=== PATIENT | male | born 1955 | race Caucasian/White ===

== ENCOUNTER 2019-05-08 21:33 | Observation (INO) ==
[2019-05-08] MEDS ORDERED: DICYCLOMINE 20 MG/2 ML AMP IM ONE (22:04)
[2019-05-08] MEDS ORDERED: SODIUM CHLORIDE 0.9% 1,000 ML IV STA (22:04)
[2019-05-08] MEDS ORDERED: ONDANSETRON 4 MG/2 ML VIAL IV STA (22:04)
[2019-05-08] MEDS ORDERED: METOCLOPRAMIDE 10 MG/2 ML VIAL IV STA (22:04)
[2019-05-08 22:22] LABS: Basophils % 0.8 % (0.0-0.8); Eosinophils # 0.1 10*3/uL (0.0-0.87); Eosinophils % 2.9 % (0.00-10.9); Hematocrit 37.3 VOL% (42.0-52.0); Hemoglobin 12.2 GM/DL (14.0-18.0); Immature Granulocytes % 1.6 %; Immature Granulocytes Absolute 0.04 #; Lymphocytes # 0.8 10*3/uL (1.4-4.0); Mean Corpuscular HGB Conc 32.7 GM/DL (32-36); Mean Corpuscular Volume 99.2 FL (87-102); Mean Platelet Volume 9.2 FL (9.6-12.0); Monocytes % 20.5 % (1.7-12.7); Neutrophils % 40.2 % (38.7-73.9); Platelet Count 155 T/CUMM (130-400); Red Blood Count 3.76 MC/CUMM (3.8-5.5); White Blood Count 2.4 T/CUMM (4-12)
[2019-05-08 22:30] LABS: PT Patient Result 11.2 SECS (9.6-12.2); Partial Thromboplastin Time 33.4 SECS (20.8-36.0)
[2019-05-08 22:35] LABS: Albumin 2.8 G/DL (3.4-5.0); Bilirubin,Total 0.8 MG/DL (0.2-1.0); Osmolality,Calculated 278.7 MOS/KG (273-304); Total Protein 6.8 G/DL (6.4-8.3)
[2019-05-08 22:36] LABS: Troponin I < 0.015 NG/ML (0.00-0.045)
[2019-05-08 22:55] LABS: Eosinophils 2 % (0-10); Lymphocytes 35 % (20-55); Nucleated Red Blood Cells 1 (0-5); Segmented Neutrophils 39 % (50-85); Total Cells Counted 100
[2019-05-08 22:56] LABS: Atypical Lymphocytes Few; Hypochromasia 1+; Platelet Estimate Normal; Polychromasia Few; Reactive Lymphocytes Few
[2019-05-09 03:26] LABS: Barbiturates Screen,Urine Negative (Negative); Benzodiazepines Screen,Urine Negative (Negative); Cannabinoid Screen,Urine Negative (Negative); Opiate Screen,Urine Negative (Negative); Phencyclidine Screen,Urine Negative (Negative)
[2019-05-09] MEDS ORDERED: ONDANSETRON 4 MG/2 ML VIAL ONE (04:13)
[2019-05-09 05:02] LABS: Apearance,Urine Cloudy (Clear); Urine Color Amber (Yellow)
[2019-05-09 05:03] LABS: Glucose,Urine (UA) Negative (Negative); Ketones,Urine 80 mg/dL (Negative); Nitrite,Urine Negative (Negative); Protein,Urine Negative; Urine Specific Gravity 1.027 (1.001-1.035)
[2019-05-09 05:04] LABS: Bilirubin,Urine Negative (Negative); Blood, Urine Negative (Negative); RBC,Urine 11 /HPF (0-4); WBC,Urine 2 /HPF (0-6)
[2019-05-09 05:05] LABS: Mucus,Urine Many /LPF (Occasional)
[2019-05-09 05:06] LABS: Hyaline Casts,Urine 9 /LPF (0-3)
[2019-05-09] MEDS ORDERED: ONDANSETRON 4 MG/2 ML VIAL IV PRN (07:58)
[2019-05-09] MEDS ORDERED: DOCUSATE SODIUM 100 MG CAPSULE PO PRN (07:58)
[2019-05-09] MEDS ORDERED: POTASSIUM CHLORIDE 20 MEQ TABLET PO PRN (07:58)
[2019-05-09] MEDS ORDERED: ACETAMINOPHEN 325 MG TABLET PO PRN (07:58)
[2019-05-09] MEDS: TAMSULOSIN 0.4 MG CAPSULE PO SCH (10:30)
[2019-05-09] MEDS: FOLIC ACID 1 MG TABLET PO SCH (10:30)
[2019-05-09] MEDS: hydrOXYzine HCL 25 MG TABLET PO PRN ×2 (10:30→20:26)
[2019-05-09] MEDS: ENOXAPARIN 40 MG/0.4 ML SYRINGE SUBCUT SCH (10:30)
[2019-05-09] MEDS: TRIAMCINOLONE 0.1% CREAM 15 GM TUBE TOP SCH ×2 (10:31→20:27)
[2019-05-09] MEDS: SODIUM CHLORIDE 0.9% 1,000 ML IV SCH (10:31)
[2019-05-09] MEDS: FILGRASTIM-SNDZ 480 MCG/0.8 ML SYRINGE SUBCUT SCH (10:31)
[2019-05-09] MEDS ORDERED: POTASSIUM CHLORIDE RIDER 20 MEQ in PREMIX 1 EACH IV PRN (11:46)
[2019-05-09] MEDS: BUPRENORPHINE NALOXONE SL SCH ×3 (13:30→20:26)
[2019-05-09] MEDS: POTASSIUM CHLORIDE RIDER 10 MEQ in PREMIX 1 EACH IV PRN (14:37)
[2019-05-10] MEDS: SODIUM CHLORIDE 0.9% 1,000 ML IV SCH ×4 (00:42→20:50)
[2019-05-10 01:40] LABS: Albumin 2.7 G/DL (3.4-5.0); Bilirubin,Total 0.7 MG/DL (0.2-1.0); Calcium 8.5 MG/DL (8.5-10.1); Osmolality,Calculated 273.8 MOS/KG (273-304); Total Protein 6.3 G/DL (6.4-8.3)
[2019-05-10] MEDS: POTASSIUM CHLORIDE RIDER 10 MEQ in PREMIX 1 EACH IV PRN ×2 (03:20→04:35)
[2019-05-10 06:05] LABS: Basophils % 0.6 % (0.0-0.8); Eosinophils # 0.2 10*3/uL (0.0-0.87); Eosinophils % 3.7 % (0.00-10.9); Hematocrit 32.6 VOL% (42.0-52.0); Hemoglobin 10.4 GM/DL (14.0-18.0); Immature Granulocytes % 0.8 %; Immature Granulocytes Absolute 0.04 #; Lymphocytes # 1.3 10*3/uL (1.4-4.0); Lymphocytes % 27.1 % (21.2-54.2); Mean Corpuscular HGB Conc 31.9 GM/DL (32-36); Mean Corpuscular Volume 101.9 FL (87-102); Mean Platelet Volume 9.5 FL (9.6-12.0); Monocytes % 17.9 % (1.7-12.7); Neutrophils % 49.9 % (38.7-73.9); Platelet Count 138 T/CUMM (130-400); Red Cell Distribution Width 14.5 % (9.3-17.3); White Blood Count 4.9 T/CUMM (4-12)
[2019-05-10 06:14] LABS: Calcium 8.2 MG/DL (8.5-10.1); Osmolality,Calculated 278.3 MOS/KG (273-304)
[2019-05-10 06:43] LABS: Band Neutrophils 5 % (0-10); Eosinophils 5 % (0-10); Lymphocytes 39 % (20-55); Platelet Estimate Decreased; Segmented Neutrophils 34 % (50-85); Total Cells Counted 100
[2019-05-10 06:44] LABS: Anisocytosis 1+; Macrocytosis 1+; Polychromasia 1+
[2019-05-10] MEDS ORDERED: DILTIAZEM 50 MG/10 ML VIAL IV ONE (06:48)
[2019-05-10] MEDS ORDERED: MAGNESIUM SULF RIDER 4 GM in PREMIX 1 EACH IV PRN (07:56)
[2019-05-10] MEDS ORDERED: MAGNESIUM SULF RIDER 2 GM in PREMIX 1 EACH IV PRN (07:56)
[2019-05-10] MEDS: FOLIC ACID 1 MG TABLET PO SCH (08:37)
[2019-05-10] MEDS: FILGRASTIM-SNDZ 480 MCG/0.8 ML SYRINGE SUBCUT SCH (08:37)
[2019-05-10] MEDS: ENOXAPARIN 40 MG/0.4 ML SYRINGE SUBCUT SCH (08:37)
[2019-05-10] MEDS: TAMSULOSIN 0.4 MG CAPSULE PO SCH (08:37)
[2019-05-10] MEDS: BUPRENORPHINE NALOXONE SL SCH ×3 (08:43→20:52)
[2019-05-10] MEDS: TRIAMCINOLONE 0.1% CREAM 15 GM TUBE TOP SCH ×2 (09:00→21:00)
[2019-05-10 12:20] LABS: Calcium 8.1 MG/DL (8.5-10.1); Osmolality,Calculated 274.5 MOS/KG (273-304)
[2019-05-11] MEDS ORDERED: ASPIRIN EC 81 MG TABLET PO SCH (09:00)
[2019-05-11] MEDS: SODIUM CHLORIDE 0.9% 1,000 ML IV SCH ×2 (09:45→09:46)
[2019-05-11] MEDS: DILTIAZEM CD 120 MG CAPSULE PO SCH ×2 (09:46→13:21)
[2019-05-11] MEDS: FOLIC ACID 1 MG TABLET PO SCH (09:46)
[2019-05-11] MEDS: ENOXAPARIN 40 MG/0.4 ML SYRINGE SUBCUT SCH (09:46)
[2019-05-11] MEDS: TAMSULOSIN 0.4 MG CAPSULE PO SCH (09:47)
[2019-05-11] MEDS: TRIAMCINOLONE 0.1% CREAM 15 GM TUBE TOP SCH (09:48)
[2019-05-11] MEDS: BUPRENORPHINE NALOXONE SL SCH ×2 (09:50→15:10)
[2019-05-11] MEDS ORDERED: POTASSIUM CHLORIDE 20 MEQ TABLET PO ONE (10:53)
[2019-05-11 11:59] VITALS: BP 95/62
[2019-05-11] MEDS ORDERED: HEPARIN LOCK FLUSH 500 UNIT/5 ML SYRINGE IV ONE (14:35)
== END 2019-05-11 16:44 | disposition home or self-care (01) ==
LOC: EDUNIT# 21:33 → N.ED 21:33 → N.4E 21:33 → N.EDINP 21:33 → EDBD 21:33 → SUATTDRO 05-09 04:46 → N.4E 05-09 05:04 → N.EDINP 05-09 05:29 → N.4E 05-09 07:16
PROVIDERS: ADMIT Internal Medicine; ATTEND Internal Medicine

== ENCOUNTER 2019-06-29 18:10 | Inpatient (IN) ==
[2019-06-29] MEDS ORDERED: KETOROLAC 30 MG/1 ML VIAL IV STA (19:25)
[2019-06-29] MEDS ORDERED: ASPIRIN 325 MG TABLET PO STA (19:25)
[2019-06-29] MEDS ORDERED: METOPROLOL TARTRATE 5 MG/5 ML VIAL IV STA (19:25)
[2019-06-29] MEDS ORDERED: ONDANSETRON 4 MG/2 ML VIAL IV STA (19:25)
[2019-06-29] MEDS ORDERED: ALBUTEROL NEB SOLN 5 MG/ML 20 ML/BOTTLE CONT NEB STA (19:25)
[2019-06-29 19:41] LABS: Basophils # 0.1 10*3/uL (0.0-0.2); Basophils % 0.5 % (0.0-0.8); Eosinophils # 0.1 10*3/uL (0.0-0.87); Hematocrit 43.7 VOL% (42.0-52.0); Hemoglobin 13.5 GM/DL (14.0-18.0); Lymphocytes # 1.3 10*3/uL (1.4-4.0); Lymphocytes % 12.8 % (21.2-54.2); Mean Corpuscular HGB Conc 30.9 GM/DL (32-36); Mean Corpuscular Volume 99.1 FL (87-102); Mean Platelet Volume 9.2 FL (9.6-12.0); Monocytes % 5.5 % (1.7-12.7); Neutrophils % 79.2 % (38.7-73.9); Platelet Count 285 T/CUMM (130-400); Red Blood Count 4.41 MC/CUMM (3.8-5.5); Red Cell Distribution Width 14.7 % (9.3-17.3); White Blood Count 10.1 T/CUMM (4-12)
[2019-06-29 19:53] LABS: INR 0.9; PT Patient Result 10.3 SECS (9.6-12.2); Partial Thromboplastin Time 27.9 SECS (20.8-36.0)
[2019-06-29 20:06] LABS: Albumin 3.3 G/DL (3.4-5.0); Bilirubin,Total 0.4 MG/DL (0.2-1.0); Osmolality,Calculated 276.5 MOS/KG (273-304); Total Protein 7.1 G/DL (6.4-8.3)
[2019-06-29 20:15] LABS: Troponin I < 0.015 NG/ML (0.00-0.045)
[2019-06-29 20:37] LABS: Apearance,Urine Slightly Hazy (Clear); Bilirubin,Urine Negative (Negative); Blood, Urine Negative (Negative); Glucose,Urine (UA) Negative (Negative); Ketones,Urine Negative (Negative); Mucus,Urine Moderate /LPF (Occasional); Nitrite,Urine Negative (Negative); Protein,Urine Negative; RBC,Urine 1 /HPF (0-4); Squamous Epithelial Cell,Urine Occasional /HPF (0-10); Urine Color Yellow (Yellow); Urine Specific Gravity 1.013 (1.001-1.035)
[2019-06-29 20:52] LABS: Barbiturates Screen,Urine Negative (Negative); Benzodiazepines Screen,Urine Negative (Negative); Cannabinoid Screen,Urine Negative (Negative); Opiate Screen,Urine Negative (Negative); Phencyclidine Screen,Urine Negative (Negative)
[2019-06-29] MEDS ORDERED: SODIUM CHLORIDE 0.9% 1,000 ML IV STA (22:05)
[2019-06-29] MEDS ORDERED: ONDANSETRON 4 MG/2 ML VIAL IV PRN (23:06)
[2019-06-29] MEDS ORDERED: guaiFENesin/DM ER 600-30 MG TABLET PO PRN (23:06)
[2019-06-29] MEDS ORDERED: hydrALAZINE 20 MG/1 ML VIAL IV PRN (23:06)
[2019-06-29] MEDS ORDERED: DOCUSATE SODIUM 100 MG CAPSULE PO PRN (23:06)
[2019-06-29] MEDS ORDERED: NICOTINE 21 MG/24 HR PATCH TRANSDERM PRN (23:06)
[2019-06-29] MEDS ORDERED: ALBUTEROL 2.5 MG/3 ML NEB RESP TX PRN (23:06)
[2019-06-29] MEDS ORDERED: ACETAMINOPHEN 325 MG TABLET PO PRN (23:06)
[2019-06-29] MEDS ORDERED: ZALEPLON 5 MG CAPSULE PO PRN (23:06)
[2019-06-29] MEDS ORDERED: NOREPINEPHRINE 8 MG in SODIUM CHLORIDE 0.9% 242 ML IV PRN (23:11)
[2019-06-29] MEDS ORDERED: NOREPINEPHRINE 4 MG/4 ML VIAL IV ONE (23:20)
[2019-06-29] MEDS: SODIUM CHLORIDE 0.9% 1,000 ML IV SCH (23:36)
[2019-06-30] MEDS ORDERED: SODIUM CHLORIDE 0.9% 1,000 ML IV ONE (01:26)
[2019-06-30] MEDS: PIPERACILLIN/TAZOBACTAM 3,375 MG in SODIUM CHLORIDE 0.9% 100 ML IV SCH ×3 (04:48→19:30)
[2019-06-30] MEDS ORDERED: VANCOMYCIN INJ 1,750 MG in SODIUM CHLORIDE 0.9% 500 ML IV SCH (08:30)
[2019-06-30] MEDS: SODIUM CHLORIDE 0.9% 1,000 ML IV SCH ×2 (09:05→17:00)
[2019-06-30] MEDS: PANTOPRAZOLE 40 MG TABLET PO SCH (09:22)
[2019-06-30 10:28] LABS: Calcium 8.3 MG/DL (8.5-10.1); Osmolality,Calculated 281.1 MOS/KG (273-304)
[2019-06-30] MEDS ORDERED: POTASSIUM CHLORIDE 20 MEQ TABLET PO ONE ×2 (11:56→17:53)
[2019-06-30] MEDS: predniSONE 20 MG TABLET PO SCH (12:32)
[2019-06-30] MEDS: FOLIC ACID 1 MG TABLET PO SCH (12:32)
[2019-06-30] MEDS: ASPIRIN CHEW 81 MG TABLET PO SCH (12:32)
[2019-06-30] MEDS: TAMSULOSIN 0.4 MG CAPSULE PO SCH (12:34)
[2019-06-30] MEDS: BUPRENORPHINE NALOXONE SL SCH ×2 (14:00→20:33)
[2019-06-30] MEDS ORDERED: MAGNESIUM SULF RIDER 2 GM in PREMIX 1 EACH IV ONE (17:52)
[2019-07-01] MEDS: SODIUM CHLORIDE 0.9% 1,000 ML IV SCH ×3 (01:10→14:34)
[2019-07-01] MEDS: PIPERACILLIN/TAZOBACTAM 3,375 MG in SODIUM CHLORIDE 0.9% 100 ML IV SCH ×3 (04:05→23:01)
[2019-07-01 04:27] LABS: Basophils # 0.1 10*3/uL (0.0-0.2); Basophils % 0.7 % (0.0-0.8); Eosinophils # 0.1 10*3/uL (0.0-0.87); Eosinophils % 0.8 % (0.00-10.9); Hematocrit 34.9 VOL% (42.0-52.0); Immature Granulocytes % 0.7 %; Immature Granulocytes Absolute 0.05 #; Lymphocytes # 1.5 10*3/uL (1.4-4.0); Lymphocytes % 19.6 % (21.2-54.2); Mean Corpuscular HGB Conc 31.5 GM/DL (32-36); Mean Corpuscular Volume 98.3 FL (87-102); Mean Platelet Volume 9.1 FL (9.6-12.0); Monocytes % 6.7 % (1.7-12.7); Neutrophils % 71.5 % (38.7-73.9); Platelet Count 249 T/CUMM (130-400); Red Blood Count 3.55 MC/CUMM (3.8-5.5); Red Cell Distribution Width 14.7 % (9.3-17.3); White Blood Count 7.5 T/CUMM (4-12)
[2019-07-01 04:44] LABS: Calcium 8.8 MG/DL (8.5-10.1); Osmolality,Calculated 276.4 MOS/KG (273-304)
[2019-07-01] MEDS: ASPIRIN CHEW 81 MG TABLET PO SCH (09:03)
[2019-07-01] MEDS: BUPRENORPHINE NALOXONE SL SCH ×3 (09:03→21:46)
[2019-07-01] MEDS: predniSONE 20 MG TABLET PO SCH (09:04)
[2019-07-01] MEDS: FOLIC ACID 1 MG TABLET PO SCH (09:04)
[2019-07-01] MEDS: TAMSULOSIN 0.4 MG CAPSULE PO SCH (09:04)
[2019-07-01] MEDS: PANTOPRAZOLE 40 MG TABLET PO SCH (09:04)
[2019-07-01] MEDS: SOTALOL 80 MG TABLET PO SCH ×2 (09:04→21:46)
[2019-07-01] MEDS ORDERED: POTASSIUM CHLORIDE 20 MEQ TABLET PO ONE (14:47)
[2019-07-02 03:59] LABS: Osmolality,Calculated 280.1 MOS/KG (273-304)
[2019-07-02] MEDS: PIPERACILLIN/TAZOBACTAM 3,375 MG in SODIUM CHLORIDE 0.9% 100 ML IV SCH ×3 (05:58→23:14)
[2019-07-02] MEDS ORDERED: SOTALOL 80 MG TABLET PO ONE (06:00)
[2019-07-02] MEDS: SOTALOL 80 MG TABLET PO SCH ×2 (08:25→23:12)
[2019-07-02] MEDS: BUPRENORPHINE NALOXONE SL SCH ×3 (09:30→23:13)
[2019-07-02] MEDS: ASPIRIN CHEW 81 MG TABLET PO SCH (09:31)
[2019-07-02] MEDS: FOLIC ACID 1 MG TABLET PO SCH (09:31)
[2019-07-02] MEDS: TAMSULOSIN 0.4 MG CAPSULE PO SCH (09:31)
[2019-07-02] MEDS: predniSONE 20 MG TABLET PO SCH (09:31)
[2019-07-02] MEDS: PANTOPRAZOLE 40 MG TABLET PO SCH (09:31)
[2019-07-02] MEDS ORDERED: FUROSEMIDE 40 MG/4 ML VIAL IV ONE (13:18)
[2019-07-02] MEDS ORDERED: KETOROLAC 15 MG/1 ML VIAL IV ONE (13:19)
[2019-07-02] MEDS ORDERED: POTASSIUM CHLORIDE 20 MEQ TABLET PO PRN (15:54)
[2019-07-02] MEDS ORDERED: POTASSIUM CHLORIDE 20 MEQ TABLET PO ONE (16:02)
[2019-07-02] MEDS ORDERED: POTASSIUM CHLORIDE 20 MEQ/15 ML UDCUP PO ONE (17:03)
[2019-07-02] MEDS: POTASSIUM CHLORIDE 20 MEQ/15 ML UDCUP PO PRN (23:14)
[2019-07-03] MEDS: POTASSIUM CHLORIDE 20 MEQ/15 ML UDCUP PO PRN (01:13)
[2019-07-03 05:58] LABS: Basophils # 0.1 10*3/uL (0.0-0.2); Basophils % 0.8 % (0.0-0.8); Eosinophils # 0.2 10*3/uL (0.0-0.87); Eosinophils % 1.6 % (0.00-10.9); Hematocrit 39.4 VOL% (42.0-52.0); Hemoglobin 12.2 GM/DL (14.0-18.0); Immature Granulocytes % 1.2 %; Immature Granulocytes Absolute 0.12 #; Lymphocytes # 2.6 10*3/uL (1.4-4.0); Lymphocytes % 25.3 % (21.2-54.2); Mean Platelet Volume 8.8 FL (9.6-12.0); Monocytes % 6.8 % (1.7-12.7); Neutrophils % 64.3 % (38.7-73.9); Platelet Count 302 T/CUMM (130-400); Red Blood Count 3.98 MC/CUMM (3.8-5.5); Red Cell Distribution Width 14.9 % (9.3-17.3); White Blood Count 10.2 T/CUMM (4-12)
[2019-07-03 06:15] LABS: Calcium 9.3 MG/DL (8.5-10.1); Osmolality,Calculated 276.5 MOS/KG (273-304)
[2019-07-03] MEDS: PIPERACILLIN/TAZOBACTAM 3,375 MG in SODIUM CHLORIDE 0.9% 100 ML IV SCH ×3 (06:21→22:42)
[2019-07-03] MEDS: ASPIRIN CHEW 81 MG TABLET PO SCH (09:06)
[2019-07-03] MEDS: predniSONE 20 MG TABLET PO SCH (09:06)
[2019-07-03] MEDS: PANTOPRAZOLE 40 MG TABLET PO SCH (09:06)
[2019-07-03] MEDS: FUROSEMIDE 20 MG TABLET PO SCH (09:06)
[2019-07-03] MEDS: FOLIC ACID 1 MG TABLET PO SCH (09:06)
[2019-07-03] MEDS: SOTALOL 80 MG TABLET PO SCH ×2 (09:07→22:38)
[2019-07-03] MEDS: TAMSULOSIN 0.4 MG CAPSULE PO SCH (09:07)
[2019-07-03] MEDS: BUPRENORPHINE NALOXONE SL SCH ×3 (10:11→22:40)
[2019-07-03] MEDS ORDERED: KETOROLAC 10 MG TABLET PO PRN (21:38)
[2019-07-03] MEDS ORDERED: KETOROLAC 10 MG TABLET PO ONE (21:38)
[2019-07-04] MEDS: PIPERACILLIN/TAZOBACTAM 3,375 MG in SODIUM CHLORIDE 0.9% 100 ML IV SCH (05:45)
[2019-07-04] MEDS: BUPRENORPHINE NALOXONE SL SCH (09:22)
[2019-07-04] MEDS: ASPIRIN CHEW 81 MG TABLET PO SCH (09:23)
[2019-07-04] MEDS: predniSONE 20 MG TABLET PO SCH (09:23)
[2019-07-04] MEDS: FOLIC ACID 1 MG TABLET PO SCH (09:23)
[2019-07-04] MEDS: TAMSULOSIN 0.4 MG CAPSULE PO SCH (09:23)
[2019-07-04] MEDS: PANTOPRAZOLE 40 MG TABLET PO SCH (09:23)
[2019-07-04] MEDS: FUROSEMIDE 20 MG TABLET PO SCH (09:36)
[2019-07-04] MEDS: SOTALOL 80 MG TABLET PO SCH (09:36)
[2019-07-04] MEDS ORDERED: FUROSEMIDE 40 MG TABLET PO SCH (10:53)
[2019-07-04 11:51] VITALS: BP 109/63
[2019-07-05] MEDS ORDERED: POTASSIUM CHLORIDE 20 MEQ TABLET PO SCH (09:00)
== END 2019-07-04 14:20 | disposition home or self-care (01) | DRG 309 ==
LOC: N.ED 18:10 → SUATTDRO 23:06 → N.EDINP 23:06 → N.CC 23:47 → N.TELEN 07-02 18:11
PROVIDERS: ADMIT Internal Medicine; ATTEND Family Medicine

== ENCOUNTER 2019-12-07 08:58 | Observation (INO) ==
[2019-12-07] MEDS ORDERED: SODIUM CHLORIDE 0.9% 500 ML IV STA (09:25)
[2019-12-07 09:42] LABS: Basophils # 0.1 10*3/uL (0.0-0.2); Basophils % 0.7 % (0.0-0.8); Eosinophils # 0.3 10*3/uL (0.0-0.87); Eosinophils % 2.9 % (0.00-10.9); Hematocrit 34.4 VOL% (42.0-52.0); Hemoglobin 10.8 GM/DL (14.0-18.0); Immature Granulocytes % 1.6 %; Immature Granulocytes Absolute 0.14 #; Lymphocytes # 1.7 10*3/uL (1.4-4.0); Lymphocytes % 18.7 % (21.2-54.2); Mean Corpuscular HGB Conc 31.4 GM/DL (32-36); Mean Corpuscular Volume 98.3 FL (87-102); Monocytes % 9.7 % (1.7-12.7); Neutrophils % 66.4 % (38.7-73.9); Platelet Count 265 T/CUMM (130-400); Red Cell Distribution Width 14.9 % (9.3-17.3)
[2019-12-07 09:53] LABS: INR 2.1
[2019-12-07 09:54] LABS: PT Patient Result 21.3 SECS (9.8-11.9); Partial Thromboplastin Time 49.2 SECS (23.9-33.8)
[2019-12-07 10:26] LABS: Albumin 2.7 G/DL (3.4-5.0); Bilirubin,Total 0.9 MG/DL (0.2-1.0); Calcium 8.5 MG/DL (8.5-10.1); Osmolality,Calculated 278.4 MOS/KG (273-304)
[2019-12-07] MEDS ORDERED: cefTRIAXone 1,000 MG in SODIUM CHLORIDE 0.9% 100 ML IV STA (11:21)
[2019-12-07] MEDS ORDERED: DEXTROSE 50% 25 GM/50 ML VIAL IV PRN (11:37)
[2019-12-07] MEDS ORDERED: GLUCAGON 1 MG VIAL IM PRN (11:37)
[2019-12-07 15:25] LABS: Bilirubin,Urine Negative (Negative); Blood, Urine Negative (Negative); Glucose,Urine (UA) Negative (Negative); Ketones,Urine 20 mg/dL (Negative); Nitrite,Urine Negative (Negative); Protein,Urine Negative; RBC,Urine 5 /HPF (0-4); Squamous Epithelial Cell,Urine Occasional /HPF (0-10); Urine Appearance CLEAR (Clear); Urine Color Yellow (Yellow); Urine Specific Gravity > 1.060 (1.001-1.035)
[2019-12-07] MEDS ORDERED: ACETAMINOPHEN 325 MG TABLET PO PRN (15:49)
[2019-12-07] MEDS ORDERED: ONDANSETRON 4 MG/2 ML VIAL IV PRN (15:49)
[2019-12-07] MEDS ORDERED: WARFARIN 5 MG TABLET PO SCH (18:00)
[2019-12-07] MEDS: BUPRENORPHINE NALOXONE SL SCH ×2 (18:17→21:11)
[2019-12-07 18:25] LABS: Troponin I < 0.015 NG/ML (0.00-0.045)
[2019-12-07 20:07] LABS: Barbiturates Screen,Urine Negative (Negative); Benzodiazepines Screen,Urine Negative (Negative); Cannabinoid Screen,Urine Negative (Negative); Opiate Screen,Urine Negative (Negative); Phencyclidine Screen,Urine Negative (Negative)
[2019-12-07] MEDS: SOTALOL 80 MG TABLET PO SCH (21:11)
[2019-12-07 21:19] LABS: Troponin I < 0.015 NG/ML (0.00-0.045)
[2019-12-08] MEDS ORDERED: SODIUM CHLORIDE 0.9% 500 ML IV ONE ×2 (04:32→06:17)
[2019-12-08 05:07] LABS: Basophils # 0.1 10*3/uL (0.0-0.2); Basophils % 0.6 % (0.0-0.8); Eosinophils # 0.3 10*3/uL (0.0-0.87); Eosinophils % 3.3 % (0.00-10.9); Hematocrit 29.5 VOL% (42.0-52.0); Hemoglobin 9.2 GM/DL (14.0-18.0); Immature Granulocytes % 1.4 %; Immature Granulocytes Absolute 0.12 #; Lymphocytes # 1.5 10*3/uL (1.4-4.0); Lymphocytes % 18.4 % (21.2-54.2); Mean Corpuscular HGB Conc 31.2 GM/DL (32-36); Mean Corpuscular Volume 98.3 FL (87-102); Mean Platelet Volume 9.1 FL (9.6-12.0); Monocytes % 8.8 % (1.7-12.7); Neutrophils % 67.5 % (38.7-73.9); Platelet Count 226 T/CUMM (130-400); Red Cell Distribution Width 15.1 % (9.3-17.3); White Blood Count 8.3 T/CUMM (4-12)
[2019-12-08 05:17] LABS: INR 2.2
[2019-12-08 05:24] LABS: PT Patient Result 22.8 SECS (9.8-11.9)
[2019-12-08] MEDS: ASPIRIN CHEW 81 MG TABLET PO SCH (08:43)
[2019-12-08] MEDS: predniSONE 10 MG TABLET PO SCH (08:43)
[2019-12-08] MEDS: POTASSIUM CHLORIDE 20 MEQ TABLET PO SCH (08:43)
[2019-12-08] MEDS: SOTALOL 80 MG TABLET PO SCH ×2 (08:43→20:41)
[2019-12-08] MEDS: TAMSULOSIN 0.4 MG CAPSULE PO SCH (08:43)
[2019-12-08 09:00] LABS: Albumin 2.6 G/DL (3.4-5.0); Bilirubin,Total 0.8 MG/DL (0.2-1.0); Calcium 8.7 MG/DL (8.5-10.1); Osmolality,Calculated 278.3 MOS/KG (273-304); Total Protein 5.9 G/DL (6.4-8.3)
[2019-12-08] MEDS: FUROSEMIDE 40 MG TABLET PO SCH (10:34)
[2019-12-08] MEDS: DIGOXIN 0.125 MG TABLET PO SCH (12:48)
[2019-12-08] MEDS: BUPRENORPHINE NALOXONE SL SCH ×4 (17:12→20:41)
[2019-12-08] MEDS: WARFARIN 2.5 MG TABLET PO SCH (19:11)
[2019-12-09 07:14] LABS: Basophils # 0.1 10*3/uL (0.0-0.2); Basophils % 0.8 % (0.0-0.8); Eosinophils # 0.4 10*3/uL (0.0-0.87); Eosinophils % 4.3 % (0.00-10.9); Hematocrit 33.2 VOL% (42.0-52.0); Hemoglobin 9.9 GM/DL (14.0-18.0); Immature Granulocytes % 1.4 %; Immature Granulocytes Absolute 0.12 #; Lymphocytes # 1.9 10*3/uL (1.4-4.0); Lymphocytes % 23.1 % (21.2-54.2); Mean Corpuscular HGB Conc 29.8 GM/DL (32-36); Mean Corpuscular Volume 102.5 FL (87-102); Mean Platelet Volume 9.3 FL (9.6-12.0); Monocytes % 8.8 % (1.7-12.7); Neutrophils % 61.6 % (38.7-73.9); Platelet Count 277 T/CUMM (130-400); Red Blood Count 3.24 MC/CUMM (3.8-5.5); Red Cell Distribution Width 15.2 % (9.3-17.3); White Blood Count 8.3 T/CUMM (4-12)
[2019-12-09 07:43] LABS: Albumin 2.5 G/DL (3.4-5.0); Bilirubin,Total 0.5 MG/DL (0.2-1.0); Calcium 8.7 MG/DL (8.5-10.1); Osmolality,Calculated 272.7 MOS/KG (273-304); Total Protein 6.8 G/DL (6.4-8.3)
[2019-12-09 08:50] LABS: INR 2.7
[2019-12-09 08:59] LABS: PT Patient Result 27.7 SECS (9.8-11.9)
[2019-12-09] MEDS: BUPRENORPHINE NALOXONE SL SCH ×7 (09:54→22:20)
[2019-12-09] MEDS: POTASSIUM CHLORIDE 20 MEQ TABLET PO SCH (09:54)
[2019-12-09] MEDS: predniSONE 10 MG TABLET PO SCH (09:54)
[2019-12-09] MEDS: SOTALOL 80 MG TABLET PO SCH ×2 (09:54→22:20)
[2019-12-09] MEDS: FUROSEMIDE 40 MG TABLET PO SCH (09:54)
[2019-12-09] MEDS: ASPIRIN CHEW 81 MG TABLET PO SCH (09:54)
[2019-12-09] MEDS: TAMSULOSIN 0.4 MG CAPSULE PO SCH (09:54)
[2019-12-09] MEDS: DIGOXIN 0.125 MG TABLET PO SCH (14:43)
[2019-12-09] MEDS: WARFARIN 2.5 MG TABLET PO SCH (18:25)
[2019-12-10 04:56] LABS: Basophils # 0.1 10*3/uL (0.0-0.2); Basophils % 0.7 % (0.0-0.8); Eosinophils # 0.2 10*3/uL (0.0-0.87); Eosinophils % 1.9 % (0.00-10.9); Hematocrit 31.4 VOL% (42.0-52.0); Hemoglobin 9.8 GM/DL (14.0-18.0); Immature Granulocytes Absolute 0.09 #; Lymphocytes # 1.7 10*3/uL (1.4-4.0); Lymphocytes % 19.1 % (21.2-54.2); Mean Corpuscular HGB Conc 31.2 GM/DL (32-36); Mean Corpuscular Volume 96.3 FL (87-102); Mean Platelet Volume 9.3 FL (9.6-12.0); Monocytes % 8.5 % (1.7-12.7); Neutrophils % 68.8 % (38.7-73.9); Platelet Count 279 T/CUMM (130-400); Red Blood Count 3.26 MC/CUMM (3.8-5.5); Red Cell Distribution Width 14.9 % (9.3-17.3)
[2019-12-10 05:05] LABS: INR 2.1; PT Patient Result 21.4 SECS (9.8-11.9)
[2019-12-10 05:20] LABS: Albumin 2.7 G/DL (3.4-5.0); Calcium 9.2 MG/DL (8.5-10.1); Osmolality,Calculated 275.5 MOS/KG (273-304); Total Protein 6.9 G/DL (6.4-8.3)
[2019-12-10] MEDS ORDERED: POTASSIUM CHLORIDE RIDER 10 MEQ in PREMIX 1 EACH IV PRN ×2 (07:40→07:43)
[2019-12-10] MEDS ORDERED: POTASSIUM CHLORIDE 20 MEQ TABLET PO PRN (07:43)
[2019-12-10] MEDS: predniSONE 10 MG TABLET PO SCH (08:38)
[2019-12-10] MEDS: SOTALOL 80 MG TABLET PO SCH (08:38)
[2019-12-10] MEDS: POTASSIUM CHLORIDE 20 MEQ TABLET PO SCH ×2 (08:38→08:41)
[2019-12-10] MEDS: FUROSEMIDE 40 MG TABLET PO SCH (08:38)
[2019-12-10] MEDS: POTASSIUM CHLORIDE RIDER 20 MEQ in PREMIX 1 EACH IV PRN ×2 (08:38→10:46)
[2019-12-10] MEDS: BUPRENORPHINE NALOXONE SL SCH ×2 (08:38→13:18)
[2019-12-10] MEDS: TAMSULOSIN 0.4 MG CAPSULE PO SCH (08:38)
[2019-12-10] MEDS: ASPIRIN CHEW 81 MG TABLET PO SCH (08:38)
[2019-12-10 11:46] VITALS: BP 109/50
[2019-12-10] MEDS: DIGOXIN 0.125 MG TABLET PO SCH (13:19)
[2019-12-10] MEDS ORDERED: HEPARIN LOCK FLUSH 500 UNIT/5 ML SYRINGE IV ONE (13:41)
== END 2019-12-10 14:25 | disposition hospice, home (50) ==
LOC: EDBD → EDUNIT# → N.ED 08:58 → N.EDINP 11:35 → INTOOBSV 11:35 → SUATTDRO 11:35 → N.3E 13:39 → N.4E 12-10 01:14
PROVIDERS: ADMIT Internal Medicine; ATTEND Internal Medicine

== ENCOUNTER 2020-01-17 17:28 | Inpatient (IN) ==
[2020-01-17 18:15] LABS: Basophils # 0.1 10*3/uL (0.0-0.2); Basophils % 1.2 % (0.0-0.8); Eosinophils # 0.1 10*3/uL (0.0-0.87); Eosinophils % 1.4 % (0.00-10.9); Hematocrit 54.1 VOL% (42.0-52.0); Immature Granulocytes % 1.6 %; Immature Granulocytes Absolute 0.07 #; Lymphocytes # 0.8 10*3/uL (1.4-4.0); Lymphocytes % 18.5 % (21.2-54.2); Mean Corpuscular HGB Conc 31.4 GM/DL (32-36); Mean Corpuscular Volume 92.8 FL (87-102); Mean Platelet Volume 8.6 FL (9.6-12.0); Monocytes % 9.1 % (1.7-12.7); Neutrophils % 68.2 % (38.7-73.9); Platelet Count 160 T/CUMM (130-400); Red Blood Count 5.83 MC/CUMM (3.8-5.5); Red Cell Distribution Width 15.5 % (9.3-17.3); White Blood Count 4.3 T/CUMM (4-12)
[2020-01-17] MEDS ORDERED: LORazepam 2 MG/1 ML VIAL ONE (18:35)
[2020-01-17 18:40] LABS: Albumin 2.6 G/DL (3.4-5.0); Bilirubin,Total 0.9 MG/DL (0.2-1.0); Calcium 9.4 MG/DL (8.5-10.1); Osmolality,Calculated 278.4 MOS/KG (273-304); Total Protein 6.8 G/DL (6.4-8.3)
[2020-01-17] MEDS ORDERED: LORazepam 2 MG/1 ML VIAL IV STA (18:53)
[2020-01-17 19:04] LABS: Bacteria,Urine Occasional /HPF (Few); Bilirubin,Urine Negative (Negative); Blood, Urine Negative (Negative); Glucose,Urine (UA) Negative (Negative); Hyaline Casts,Urine 3 /LPF (0-3); Ketones,Urine 5 mg/dL (Negative); Mucus,Urine Occasional /LPF (Occasional); Nitrite,Urine Negative (Negative); Protein,Urine Negative; RBC,Urine 5 /HPF (0-4); Urine Appearance CLEAR (Clear); Urine Color Yellow (Yellow); Urine Specific Gravity 1.016 (1.001-1.035); WBC,Urine <1 /HPF (0-6)
[2020-01-17 19:13] LABS: Allen Test Positive
[2020-01-17 19:14] LABS: ABG Base Excess 7.1 MMOL/L (-2.5-2.5); ABG HCO3 30.9 MMOL/L (20-26); ABG Oxygen Saturation 96.5 % (95-100); ABG PCO2 40.5 MM HG (35-48); ABG PH 7.492 (7.35-7.45); ABG PO2 80.5 MM HG (80-95); ABG TCO2 27.8 MMOL/L (23-27)
[2020-01-17] MEDS: DEXT 5% NACL 0.45% KCL 40 MEQ 40 MEQ/1,000 ML BAG IV SCH (20:07)
[2020-01-17] MEDS ORDERED: GLUCAGON 1 MG VIAL IM PRN (20:12)
[2020-01-17] MEDS ORDERED: DEXTROSE 50% 25 GM/50 ML VIAL IV PRN (20:12)
[2020-01-17] MEDS ORDERED: prednisoLONE ACETATE 1% OPH SUSP 5 ML BOTTLE BOTH EYES SCH (21:00)
[2020-01-17] MEDS ORDERED: KETOROLAC 0.5% OPH SOLN 5 ML BOTTLE BOTH EYES SCH (21:00)
[2020-01-17] MEDS ORDERED: OFLOXACIN 0.3% OPH SOLN 5 ML BOTTLE BOTH EYES SCH (21:00)
[2020-01-18] MEDS: SOTALOL 80 MG TABLET PO SCH ×3 (00:17→21:48)
[2020-01-18 01:24] LABS: Basophils # 0.1 10*3/uL (0.0-0.2); Basophils % 0.7 % (0.0-0.8); Eosinophils # 0.1 10*3/uL (0.0-0.87); Eosinophils % 1.4 % (0.00-10.9); Hematocrit 32.6 VOL% (42.0-52.0); Hemoglobin 10.2 GM/DL (14.0-18.0); Immature Granulocytes % 1.5 %; Immature Granulocytes Absolute 0.15 #; Lymphocytes % 20.1 % (21.2-54.2); Mean Corpuscular HGB Conc 31.3 GM/DL (32-36); Mean Corpuscular Volume 94.5 FL (87-102); Mean Platelet Volume 8.8 FL (9.6-12.0); Monocytes % 10.1 % (1.7-12.7); Neutrophils % 66.2 % (38.7-73.9); Platelet Count 282 T/CUMM (130-400); Red Blood Count 3.45 MC/CUMM (3.8-5.5); Red Cell Distribution Width 15.2 % (9.3-17.3); White Blood Count 9.9 T/CUMM (4-12)
[2020-01-18 01:59] LABS: Albumin 2.5 G/DL (3.4-5.0); Bilirubin,Total 0.7 MG/DL (0.2-1.0); Calcium 9.1 MG/DL (8.5-10.1); Osmolality,Calculated 278.4 MOS/KG (273-304); Total Protein 6.6 G/DL (6.4-8.3)
[2020-01-18] MEDS: BUPRENORPHINE NALOXONE SL SCH ×4 (06:03→16:27)
[2020-01-18] MEDS ORDERED: ZIPRASIDONE 20 MG/1 ML VIAL IM ONE (08:40)
[2020-01-18] MEDS: KETOROLAC 0.5% OPH SOLN 5 ML BOTTLE BOTH EYES SCH ×2 (09:50→21:48)
[2020-01-18] MEDS: TAMSULOSIN 0.4 MG CAPSULE PO SCH (09:50)
[2020-01-18] MEDS: OFLOXACIN 0.3% OPH SOLN 5 ML BOTTLE BOTH EYES SCH ×2 (09:50→21:49)
[2020-01-18] MEDS: prednisoLONE ACETATE 1% OPH SUSP 5 ML BOTTLE BOTH EYES SCH ×2 (09:51→21:49)
[2020-01-18] MEDS: predniSONE 10 MG TABLET PO SCH (09:51)
[2020-01-18] MEDS: RIVAROXABAN 20 MG TABLET PO SCH (09:52)
[2020-01-18] MEDS: DIGOXIN 0.125 MG TABLET PO SCH (14:00)
[2020-01-18] MEDS ORDERED: LORazepam 2 MG/1 ML VIAL IV PRN (14:57)
[2020-01-18] MEDS: LORazepam 2 MG/1 ML VIAL IM PRN ×2 (19:45→23:51)
[2020-01-18] MEDS: SODIUM CHLORIDE 0.9% 1,000 ML IV SCH ×3 (19:50→23:51)
[2020-01-18] MEDS: DEXT 5% NACL 0.45% KCL 40 MEQ 40 MEQ/1,000 ML BAG IV SCH (19:51)
[2020-01-19] MEDS: DEXT 5% NACL 0.45% KCL 40 MEQ 40 MEQ/1,000 ML BAG IV SCH ×3 (02:34→21:38)
[2020-01-19] MEDS: BUPRENORPHINE NALOXONE SL SCH ×5 (02:34→21:34)
[2020-01-19] MEDS: SODIUM CHLORIDE 0.9% 1,000 ML IV SCH ×3 (05:02→21:33)
[2020-01-19] MEDS: LORazepam 2 MG/1 ML VIAL IM PRN ×3 (05:02→21:33)
[2020-01-19 05:53] LABS: Basophils # 0.1 10*3/uL (0.0-0.2); Basophils % 0.8 % (0.0-0.8); Eosinophils # 0.1 10*3/uL (0.0-0.87); Eosinophils % 1.2 % (0.00-10.9); Hematocrit 36.2 VOL% (42.0-52.0); Hemoglobin 11.1 GM/DL (14.0-18.0); Immature Granulocytes % 1.9 %; Lymphocytes # 1.9 10*3/uL (1.4-4.0); Lymphocytes % 18.2 % (21.2-54.2); Mean Corpuscular HGB Conc 30.7 GM/DL (32-36); Neutrophils % 68.9 % (38.7-73.9); Platelet Count 328 T/CUMM (130-400); Red Blood Count 3.85 MC/CUMM (3.8-5.5); Red Cell Distribution Width 15.4 % (9.3-17.3); White Blood Count 10.5 T/CUMM (4-12)
[2020-01-19 06:15] LABS: Calcium 9.3 MG/DL (8.5-10.1); Osmolality,Calculated 280.3 MOS/KG (273-304)
[2020-01-19] MEDS: TAMSULOSIN 0.4 MG CAPSULE PO SCH (08:09)
[2020-01-19] MEDS: KETOROLAC 0.5% OPH SOLN 5 ML BOTTLE BOTH EYES SCH ×2 (08:09→21:34)
[2020-01-19] MEDS: prednisoLONE ACETATE 1% OPH SUSP 5 ML BOTTLE BOTH EYES SCH ×2 (08:09→21:34)
[2020-01-19] MEDS: OFLOXACIN 0.3% OPH SOLN 5 ML BOTTLE BOTH EYES SCH ×2 (08:09→21:34)
[2020-01-19] MEDS: predniSONE 10 MG TABLET PO SCH (08:09)
[2020-01-19] MEDS: SOTALOL 80 MG TABLET PO SCH ×2 (08:09→21:34)
[2020-01-19] MEDS: RIVAROXABAN 20 MG TABLET PO SCH (08:10)
[2020-01-19] MEDS: DIGOXIN 0.125 MG TABLET PO SCH (13:23)
[2020-01-19] MEDS ORDERED: ZIPRASIDONE 20 MG/1 ML VIAL IM ONE (13:49)
[2020-01-19] MEDS: CYANOCOBALAMIN 1000 MCG/1 ML VIAL SUBCUT SCH (16:14)
[2020-01-20] MEDS: LORazepam 2 MG/1 ML VIAL IM PRN ×2 (03:00→15:20)
[2020-01-20] MEDS: SODIUM CHLORIDE 0.9% 1,000 ML IV SCH ×3 (04:17→21:09)
[2020-01-20 06:54] LABS: Osmolality,Calculated 283.1 MOS/KG (273-304)
[2020-01-20] MEDS: DEXT 5% NACL 0.45% KCL 40 MEQ 40 MEQ/1,000 ML BAG IV SCH ×2 (07:06→17:26)
[2020-01-20] MEDS: OFLOXACIN 0.3% OPH SOLN 5 ML BOTTLE BOTH EYES SCH ×2 (08:10→21:09)
[2020-01-20] MEDS: KETOROLAC 0.5% OPH SOLN 5 ML BOTTLE BOTH EYES SCH ×2 (08:10→21:09)
[2020-01-20] MEDS: prednisoLONE ACETATE 1% OPH SUSP 5 ML BOTTLE BOTH EYES SCH ×2 (08:10→21:09)
[2020-01-20] MEDS: BUPRENORPHINE NALOXONE SL SCH ×4 (08:10→21:08)
[2020-01-20] MEDS ORDERED: ZIPRASIDONE 20 MG/1 ML VIAL IM PRN (09:06)
[2020-01-20] MEDS: TAMSULOSIN 0.4 MG CAPSULE PO SCH (10:13)
[2020-01-20] MEDS: SOTALOL 80 MG TABLET PO SCH ×2 (10:13→21:08)
[2020-01-20] MEDS: predniSONE 10 MG TABLET PO SCH (10:13)
[2020-01-20] MEDS: CYANOCOBALAMIN 1000 MCG/1 ML VIAL SUBCUT SCH (10:13)
[2020-01-20] MEDS: RIVAROXABAN 20 MG TABLET PO SCH (10:13)
[2020-01-20 10:34] LABS: Bilirubin,Urine Negative (Negative); Blood, Urine Small mg/dL (Negative); Glucose,Urine (UA) Negative (Negative); Ketones,Urine 80 mg/dL (Negative); Mucus,Urine Many /LPF (Occasional); Nitrite,Urine Negative (Negative); Protein,Urine 30 MG/DL; RBC,Urine 14 /HPF (0-4); Urine Appearance CLEAR (Clear); Urine Color Amber (Yellow); Urine Specific Gravity 1.026 (1.001-1.035); WBC,Urine 4 /HPF (0-6)
[2020-01-20] MEDS: DIGOXIN 0.125 MG TABLET PO SCH (13:38)
[2020-01-21] MEDS: DEXT 5% NACL 0.45% KCL 40 MEQ 40 MEQ/1,000 ML BAG IV SCH (03:59)
[2020-01-21] MEDS: SODIUM CHLORIDE 0.9% 1,000 ML IV SCH ×2 (03:59→12:27)
[2020-01-21 08:10] LABS: Basophils # 0.1 10*3/uL (0.0-0.2); Basophils % 0.6 % (0.0-0.8); Eosinophils # 0.3 10*3/uL (0.0-0.87); Eosinophils % 3.6 % (0.00-10.9); Hematocrit 32.9 VOL% (42.0-52.0); Hemoglobin 10.2 GM/DL (14.0-18.0); Immature Granulocytes % 1.2 %; Immature Granulocytes Absolute 0.09 #; Lymphocytes # 1.9 10*3/uL (1.4-4.0); Lymphocytes % 24.8 % (21.2-54.2); Mean Corpuscular Volume 94.8 FL (87-102); Mean Platelet Volume 9.2 FL (9.6-12.0); Monocytes % 9.3 % (1.7-12.7); Neutrophils % 60.5 % (38.7-73.9); Platelet Count 268 T/CUMM (130-400); Red Blood Count 3.47 MC/CUMM (3.8-5.5); Red Cell Distribution Width 15.5 % (9.3-17.3); White Blood Count 7.7 T/CUMM (4-12)
[2020-01-21 08:28] LABS: Calcium 9.1 MG/DL (8.5-10.1)
[2020-01-21 08:32] LABS: Eosinophils 2 % (0-10); Hypochromasia 1+; Lymphocytes 20 % (20-55); Microcytosis 1+; Ovalocytes Slight; Platelet Estimate Adequate; Segmented Neutrophils 67 % (50-85); Total Cells Counted 100
[2020-01-21] MEDS ORDERED: POTASSIUM CHLORIDE 20 MEQ TABLET PO ONE (09:00)
[2020-01-21] MEDS: RIVAROXABAN 20 MG TABLET PO SCH (10:03)
[2020-01-21] MEDS: predniSONE 10 MG TABLET PO SCH (10:03)
[2020-01-21] MEDS: SOTALOL 80 MG TABLET PO SCH ×2 (10:04→21:22)
[2020-01-21] MEDS: TAMSULOSIN 0.4 MG CAPSULE PO SCH (10:04)
[2020-01-21] MEDS: CYANOCOBALAMIN 1000 MCG/1 ML VIAL SUBCUT SCH (10:04)
[2020-01-21] MEDS: BUPRENORPHINE NALOXONE SL SCH ×4 (10:05→21:22)
[2020-01-21] MEDS: OFLOXACIN 0.3% OPH SOLN 5 ML BOTTLE BOTH EYES SCH ×2 (10:10→21:25)
[2020-01-21] MEDS: KETOROLAC 0.5% OPH SOLN 5 ML BOTTLE BOTH EYES SCH ×2 (10:11→21:24)
[2020-01-21] MEDS: prednisoLONE ACETATE 1% OPH SUSP 5 ML BOTTLE BOTH EYES SCH ×2 (10:12→21:24)
[2020-01-21] MEDS: DIGOXIN 0.125 MG TABLET PO SCH (12:25)
[2020-01-21] MEDS: LORazepam 2 MG/1 ML VIAL IM PRN (21:45)
[2020-01-22] MEDS: SODIUM CHLORIDE 0.9% 1,000 ML IV SCH ×4 (02:21→13:07)
[2020-01-22 05:52] LABS: Basophils # 0.1 10*3/uL (0.0-0.2); Basophils % 0.6 % (0.0-0.8); Eosinophils # 0.2 10*3/uL (0.0-0.87); Eosinophils % 1.8 % (0.00-10.9); Hematocrit 31.9 VOL% (42.0-52.0); Hemoglobin 9.7 GM/DL (14.0-18.0); Immature Granulocytes % 0.9 %; Immature Granulocytes Absolute 0.08 #; Lymphocytes # 1.9 10*3/uL (1.4-4.0); Mean Corpuscular HGB Conc 30.4 GM/DL (32-36); Mean Corpuscular Volume 94.1 FL (87-102); Mean Platelet Volume 9.3 FL (9.6-12.0); Monocytes % 8.8 % (1.7-12.7); Neutrophils % 65.9 % (38.7-73.9); Platelet Count 255 T/CUMM (130-400); Red Blood Count 3.39 MC/CUMM (3.8-5.5); Red Cell Distribution Width 15.2 % (9.3-17.3); White Blood Count 8.5 T/CUMM (4-12)
[2020-01-22 06:24] LABS: Albumin 2.2 G/DL (3.4-5.0); Bilirubin,Total 0.8 MG/DL (0.2-1.0); Calcium 8.6 MG/DL (8.5-10.1); Osmolality,Calculated 276.4 MOS/KG (273-304)
[2020-01-22 06:28] LABS: Hypochromasia 1+; Microcytosis Slight; Platelet Estimate Adequate
[2020-01-22] MEDS: CYANOCOBALAMIN 1000 MCG/1 ML VIAL SUBCUT SCH (08:50)
[2020-01-22] MEDS: predniSONE 10 MG TABLET PO SCH (08:50)
[2020-01-22] MEDS: TAMSULOSIN 0.4 MG CAPSULE PO SCH (08:51)
[2020-01-22] MEDS: RIVAROXABAN 20 MG TABLET PO SCH (08:51)
[2020-01-22] MEDS: SOTALOL 80 MG TABLET PO SCH (08:52)
[2020-01-22] MEDS: BUPRENORPHINE NALOXONE SL SCH ×4 (08:52→21:25)
[2020-01-22] MEDS: OFLOXACIN 0.3% OPH SOLN 5 ML BOTTLE BOTH EYES SCH ×2 (08:55→21:27)
[2020-01-22] MEDS: prednisoLONE ACETATE 1% OPH SUSP 5 ML BOTTLE BOTH EYES SCH ×2 (08:55→21:26)
[2020-01-22] MEDS: KETOROLAC 0.5% OPH SOLN 5 ML BOTTLE BOTH EYES SCH ×2 (08:56→21:26)
[2020-01-22] MEDS ORDERED: POTASSIUM CHLORIDE 20 MEQ TABLET PO ONE (09:00)
[2020-01-22] MEDS: DIGOXIN 0.125 MG TABLET PO SCH (13:07)
[2020-01-22] MEDS: MIRTAZAPINE 15 MG TABLET PO SCH (21:25)
[2020-01-22] MEDS: LORazepam 2 MG/1 ML VIAL IM PRN (23:57)
[2020-01-23] MEDS: SOTALOL 80 MG TABLET PO SCH ×3 (02:51→21:54)
[2020-01-23] MEDS: SODIUM CHLORIDE 0.9% 1,000 ML IV SCH ×2 (02:51→16:25)
[2020-01-23 06:21] LABS: Basophils # 0.1 10*3/uL (0.0-0.2); Basophils % 0.7 % (0.0-0.8); Eosinophils # 0.2 10*3/uL (0.0-0.87); Eosinophils % 1.8 % (0.00-10.9); Hematocrit 32.5 VOL% (42.0-52.0); Hemoglobin 10.1 GM/DL (14.0-18.0); Immature Granulocytes % 1.2 %; Immature Granulocytes Absolute 0.11 #; Lymphocytes # 1.9 10*3/uL (1.4-4.0); Mean Corpuscular HGB Conc 31.1 GM/DL (32-36); Mean Corpuscular Volume 93.9 FL (87-102); Mean Platelet Volume 9.1 FL (9.6-12.0); Monocytes % 7.9 % (1.7-12.7); Neutrophils % 67.4 % (38.7-73.9); Platelet Count 305 T/CUMM (130-400); Red Blood Count 3.46 MC/CUMM (3.8-5.5); Red Cell Distribution Width 15.4 % (9.3-17.3); White Blood Count 9.2 T/CUMM (4-12)
[2020-01-23 06:50] LABS: Eosinophils 5 % (0-10); Hypochromasia 1+; Lymphocytes 20 % (20-55); Microcytosis Slight; Ovalocytes Slight; Platelet Estimate Adequate; Segmented Neutrophils 70 % (50-85); Total Cells Counted 100
[2020-01-23 06:58] LABS: Calcium 9.1 MG/DL (8.5-10.1); Osmolality,Calculated 273.5 MOS/KG (273-304)
[2020-01-23] MEDS: KETOROLAC 0.5% OPH SOLN 5 ML BOTTLE BOTH EYES SCH ×2 (09:58→21:55)
[2020-01-23] MEDS: prednisoLONE ACETATE 1% OPH SUSP 5 ML BOTTLE BOTH EYES SCH ×2 (09:59→21:55)
[2020-01-23] MEDS: BUPRENORPHINE NALOXONE SL SCH ×4 (09:59→21:55)
[2020-01-23] MEDS: OFLOXACIN 0.3% OPH SOLN 5 ML BOTTLE BOTH EYES SCH ×2 (09:59→21:55)
[2020-01-23] MEDS: predniSONE 10 MG TABLET PO SCH (09:59)
[2020-01-23] MEDS: RIVAROXABAN 20 MG TABLET PO SCH (10:00)
[2020-01-23] MEDS ORDERED: POTASSIUM CHLORIDE 20 MEQ/15 ML UDCUP PO ONE (10:30)
[2020-01-23] MEDS ORDERED: MAGNESIUM SULF RIDER 2 GM in PREMIX 1 EACH IV ONE (10:30)
[2020-01-23] MEDS: CYANOCOBALAMIN 1000 MCG/1 ML VIAL SUBCUT SCH (10:33)
[2020-01-23] MEDS: TAMSULOSIN 0.4 MG CAPSULE PO SCH (14:02)
[2020-01-23] MEDS: DIGOXIN 0.125 MG TABLET PO SCH (14:03)
[2020-01-23] MEDS: MIRTAZAPINE 15 MG TABLET PO SCH (21:54)
[2020-01-23] MEDS: LORazepam 2 MG/1 ML VIAL IM PRN (22:04)
[2020-01-24] MEDS: SODIUM CHLORIDE 0.9% 1,000 ML IV SCH (05:19)
[2020-01-24] MEDS ORDERED: MAGNESIUM SULF RIDER 2 GM in PREMIX 1 EACH IV ONE (08:00)
[2020-01-24] MEDS: SOTALOL 80 MG TABLET PO SCH ×2 (09:26→20:50)
[2020-01-24] MEDS: predniSONE 10 MG TABLET PO SCH (09:26)
[2020-01-24] MEDS: BUPRENORPHINE NALOXONE SL SCH ×4 (09:27→20:50)
[2020-01-24] MEDS: RIVAROXABAN 20 MG TABLET PO SCH (09:27)
[2020-01-24] MEDS: TAMSULOSIN 0.4 MG CAPSULE PO SCH (09:27)
[2020-01-24] MEDS: OFLOXACIN 0.3% OPH SOLN 5 ML BOTTLE BOTH EYES SCH ×2 (09:28→20:50)
[2020-01-24] MEDS: prednisoLONE ACETATE 1% OPH SUSP 5 ML BOTTLE BOTH EYES SCH ×2 (09:28→20:50)
[2020-01-24] MEDS: KETOROLAC 0.5% OPH SOLN 5 ML BOTTLE BOTH EYES SCH ×2 (09:35→20:50)
[2020-01-24] MEDS: DIGOXIN 0.125 MG TABLET PO SCH (12:57)
[2020-01-24] MEDS: POTASSIUM CHLORIDE RIDER 10 MEQ in PREMIX 1 EACH IV SCH ×6 (12:57→20:50)
[2020-01-24 13:33] LABS: Calcium 8.7 MG/DL (8.5-10.1); Osmolality,Calculated 273.7 MOS/KG (273-304)
[2020-01-24] MEDS ORDERED: POTASSIUM CHLORIDE 20 MEQ TABLET PO ONE (14:39)
[2020-01-24] MEDS: guaiFENesin 200 MG/10 ML UDCUP PO PRN ×2 (16:20→20:50)
[2020-01-24] MEDS: MIRTAZAPINE 15 MG TABLET PO SCH (20:50)
[2020-01-24] MEDS ORDERED: LORazepam 2 MG/1 ML VIAL IV PRN (23:21)
[2020-01-25 05:40] LABS: Basophils # 0.1 10*3/uL (0.0-0.2); Basophils % 0.5 % (0.0-0.8); Eosinophils # 0.1 10*3/uL (0.0-0.87); Hematocrit 29.5 VOL% (42.0-52.0); Hemoglobin 9.1 GM/DL (14.0-18.0); Immature Granulocytes % 1.3 %; Immature Granulocytes Absolute 0.13 #; Lymphocytes # 1.9 10*3/uL (1.4-4.0); Lymphocytes % 18.7 % (21.2-54.2); Mean Corpuscular HGB Conc 30.8 GM/DL (32-36); Mean Corpuscular Volume 94.6 FL (87-102); Mean Platelet Volume 9.5 FL (9.6-12.0); Monocytes % 8.6 % (1.7-12.7); Neutrophils % 69.9 % (38.7-73.9); Platelet Count 254 T/CUMM (130-400); Red Blood Count 3.12 MC/CUMM (3.8-5.5); Red Cell Distribution Width 15.9 % (9.3-17.3); White Blood Count 10.2 T/CUMM (4-12)
[2020-01-25 06:05] LABS: Calcium 9.2 MG/DL (8.5-10.1); Osmolality,Calculated 273.5 MOS/KG (273-304)
[2020-01-25 06:32] LABS: Eosinophils 2 % (0-10); Hypochromasia 1+; Lymphocytes 20 % (20-55); Microcytosis Slight; Ovalocytes Slight; Platelet Estimate Adequate; Segmented Neutrophils 70 % (50-85); Total Cells Counted 100
[2020-01-25] MEDS: TAMSULOSIN 0.4 MG CAPSULE PO SCH (08:44)
[2020-01-25] MEDS: BUPRENORPHINE NALOXONE SL SCH ×2 (08:44→14:59)
[2020-01-25] MEDS: SOTALOL 80 MG TABLET PO SCH (08:44)
[2020-01-25] MEDS: predniSONE 10 MG TABLET PO SCH (08:44)
[2020-01-25] MEDS: prednisoLONE ACETATE 1% OPH SUSP 5 ML BOTTLE BOTH EYES SCH (08:44)
[2020-01-25] MEDS: KETOROLAC 0.5% OPH SOLN 5 ML BOTTLE BOTH EYES SCH (08:44)
[2020-01-25] MEDS: OFLOXACIN 0.3% OPH SOLN 5 ML BOTTLE BOTH EYES SCH (08:44)
[2020-01-25] MEDS: RIVAROXABAN 20 MG TABLET PO SCH (08:44)
[2020-01-25] MEDS: DIGOXIN 0.125 MG TABLET PO SCH (15:00)
[2020-01-25 16:12] VITALS: BP 101/43
== END 2020-01-25 16:04 | disposition hospice, home (50) | DRG 640 ==
LOC: EDBD → EDUNIT# → N.ED 17:28 → N.EDINP 17:28 → SUATTDRO 20:18 → N.3E 23:17
PROVIDERS: ADMIT Internal Medicine; ATTEND Internal Medicine